=== PATIENT | female | born 1950 | race Caucasian/White ===

== ENCOUNTER 2018-04-21 09:06 | Emergency (ER) | payer MEDICARE ==
[~2018-04-21] VITALS: Ht 167.6 cm; Wt 73.9 kg
[~2018-04-21 09:06] MED LIST: ABAC300 PO; ACET325 PO; AMIO200 PO; AMOX500 PO; Aspir 8181 MG PO; ERGO50000 PO; HYDR1TAB94 PO; NAPR220 PO; NEBI5 PO; Nitrostat0.4 MG SL; Vitamin B Comple1 EA PO; XARELTO20 MG PO
== END 2018-04-21 12:24 | disposition home or self-care (01) ==
LOC: ER 09:06
DX: S90.02XA Contusion of left ankle, initial encounter (principal); Z88.2 Allergy status to sulfonamides; Z88.1 Allergy status to other antibiotic agents; Z79.899 Other long term (current) drug therapy; I48.91 Unspecified atrial fibrillation; E78.00 Pure hypercholesterolemia, unspecified; W22.8XXA Striking against or struck by other objects, initial encounter
CPT/HCPCS: 73610; 73630; 93005; 93010; 93971; 99284

== ENCOUNTER → 2021-02-04 | Outpatient (CLI) | payer MEDICARE, OTHER | END | disposition home or self-care (01) | LOC: LAB SHORT 12:42 | DX: D48.5 Neoplasm of uncertain behavior of skin (principal); L82.1 Other seborrheic keratosis | CPT/HCPCS: 88305 ==

== ENCOUNTER 2021-07-06 08:30 | Inpatient (IN) | payer MEDICARE, OTHER ==
[~2021-07-06] VITALS: Ht 167.6 cm; Wt 74.8 kg
[2021-07-06 09:01] LABS: BASOPHILS ABSOLUTE AUTO 0.06 K/mm3 (0.00-0.23); BASOPHILS PERCENT AUTO 1 % (0-2); EOSINOPHILS ABSOLUTE AUTO 0.19 K/mm3 (0.00-0.68); EOSINOPHILS PERCENT AUTO 2 % (0-6); Hematocrit 41.7 % (33.0-51.0); Hemoglobin 13.7 g/dL (11.5-16.0); IMMATURE GRAN ABSOLUTE AUTO 0.03 K/mm3 (0.00-0.10); IMMATURE GRAN PERCENT AUTO 0 % (0-1); LYMPHOCYTES ABSOLUTE AUTO 4.25 K/mm3 (0.84-5.20); LYMPHOCYTES PERCENT AUTO 45 % (21-46); MONOCYTES ABSOLUTE AUTO 1.05 K/mm3 (0.16-1.47); MONOCYTES PERCENT AUTO 11 % (4-13); Mean Corpuscular HGB 30.2 pg (26.0-34.0); Mean Corpuscular HGB Conc 32.9 g/dL (31.5-36.5); Mean Corpuscular Volume 92 fL (80-100); Mean Platelet Volume 11.2 fL (9.1-12.4); NEUTROPHILS ABSOLUTE AUTO 3.82 K/mm3 (1.96-9.15); NEUTROPHILS PERCENT AUTO 41 % (41-73); Platelet Count 212 K/mm3 (150-400); RDW Coefficient Variation 13.2 % (11.7-14.2); RDW Standard Deviation 44.6 fL (35.1-46.3); Red Blood Cell Count 4.54 M/mm3 (3.80-5.20)
[2021-07-06 09:16] LABS: International Normalized Ratio 1.15; Prothrombin Time Results 12.3 Sec (9.7-11.5)
[2021-07-06 09:23] LABS: Alanine Aminotransfer (ALT/SGP 38 U/L (12-78); Albumin, Blood 3.7 g/dL (3.4-5.0); Albumin/Globulin Ratio 0.9 (0.8-1.8); Alk Phos 78 U/L (50-136); Anion Gap 7 mmol/L (6-16); Aspartate Aminotrans (AST/SGOT 28 U/L (12-37); Bilirubin, Total 0.9 mg/dL (0.1-1.0); Blood Urea Nitrogen 20 mg/dL (8-24); Bun/Creatinine Ratio 26.6 (12.0-20.0); CO2, Blood 27 mmol/L (21-32); Calcium, Blood 9.2 mg/dL (8.5-10.1); Chloride, Blood 107 mmol/L (98-108); Creatinine, Blood 0.75 mg/dL (0.40-1.00); Globulin, Blood 3.9 g/dL (2.2-4.0); Glomerular Filtration Rate >60 (60-); Glucose, Blood 112 mg/dL (70-99); Potassium, Blood 3.2 mmol/L (3.5-5.5); Sodium, Blood 141 mmol/L (136-145); Total Protein, Blood 7.6 g/dL (6.4-8.2); Troponin I <0.015 ng/mL (0.000-0.040)
[2021-07-06 09:30] LABS: Calcium, Ionized (POC) 1.19 mmol/L (1.10-1.46); Chloride (POC) 103 mmol/L (98-108); Creatinine (POC) 0.8 mg/dL (0.6-1.0); Glucose (ISTAT POC) 115 mg/dL (70-99); Hemoglobin (POC) 14.3 g/dL (12.0-16.0); Potassium (POC) 4.2 mmol/L (3.5-5.5); Sodium (POC) 140 mmol/L (135-148); Total CO2 (POC) 28 mmol/L (21-32)
[2021-07-06 10:06] LABS: PCO2 Arterial 32.5 mmHg (35-45); PO2 Arterial 250 mmHg (80-100); pH Blood Arterial 7.37 (7.35-7.45)
[2021-07-06 10:16] LABS: SARS-Cov-2 (COVID-19) PCR, MMC NEGATIVE (NEGATIVE)
[2021-07-06 12:53] LABS: Hematocrit 38.7 % (33.0-51.0); Hemoglobin 12.4 g/dL (11.5-16.0)
[2021-07-06 13:09] LABS: International Normalized Ratio 1.23; Prothrombin Time Results 13.1 Sec (9.7-11.5)
[2021-07-06 13:27] LABS: Alanine Aminotransfer (ALT/SGP 529 U/L (12-78); Alk Phos 72 U/L (50-136); Anion Gap 9 mmol/L (6-16); Aspartate Aminotrans (AST/SGOT 810 U/L (12-37); Blood Urea Nitrogen 22 mg/dL (8-24); Bun/Creatinine Ratio 32.6 (12.0-20.0); CO2, Blood 21 mmol/L (21-32); Calcium, Blood 7.3 mg/dL (8.5-10.1); Chloride, Blood 110 mmol/L (98-108); Creatinine, Blood 0.68 mg/dL (0.40-1.00); Glomerular Filtration Rate >60 (60-); Glucose, Blood 233 mg/dL (70-99); Potassium, Blood 3.3 mmol/L (3.5-5.5); Sodium, Blood 140 mmol/L (136-145)
--- NOTE | 2021-07-06 13:35 | NUR ---
PT RECEIVED FROM GLOVE CUFFER. INTUBATED, DOPAMINE AT 10 MCG. MULTIPLE PUNCTURE SITES NOTED TO RIGHT WRIST, RIGHT BRACHIAL AND RIGHT GROIN. ARTERIAL AND VENOUS ACCESS TO RIGHT GROIN. BLOOD UNDER DRESSING, DRESSING CHANGED. PT VOMITTED BRIGHT RED FLUID WITH WHITE CHUNKS. TURNED TO SIDE, SUCTIONED AND OG TUBE INSTERTED AND STOMACH CONTENTS SUCTIONED. PT SHOWS SIGNS OF CHEST COMPRESSIONS TO STERNAL AREA. PER REPORT PT RECEIVED TWO STENTS TO THE MID LAD. PT PLACED IN RESTRAINTS TO PREVENT TUBE REMOVAL. RIGHT GROIN SOFT, NO HEMATOMA NOTED.
[2021-07-06 13:57] LABS: BASOPHILS ABSOLUTE AUTO 0.06 K/mm3 (0.00-0.23); BASOPHILS PERCENT AUTO 0 % (0-2); EOSINOPHILS ABSOLUTE AUTO 0.02 K/mm3 (0.00-0.68); EOSINOPHILS PERCENT AUTO 0 % (0-6); Hematocrit 39.4 % (33.0-51.0); IMMATURE GRAN ABSOLUTE AUTO 0.52 K/mm3 (0.00-0.10); IMMATURE GRAN PERCENT AUTO 3 % (0-1); LYMPHOCYTES ABSOLUTE AUTO 0.94 K/mm3 (0.84-5.20); LYMPHOCYTES PERCENT AUTO 5 % (21-46); MONOCYTES ABSOLUTE AUTO 1.03 K/mm3 (0.16-1.47); MONOCYTES PERCENT AUTO 5 % (4-13); Mean Corpuscular HGB 30.2 pg (26.0-34.0); Mean Corpuscular Volume 92 fL (80-100); Mean Platelet Volume 11.2 fL (9.1-12.4); NEUTROPHILS ABSOLUTE AUTO 17.35 K/mm3 (1.96-9.15); NEUTROPHILS PERCENT AUTO 87 % (41-73); Platelet Count 224 K/mm3 (150-400); RDW Coefficient Variation 13.2 % (11.7-14.2); RDW Standard Deviation 44.2 fL (35.1-46.3); White Blood Cell Count 19.92 K/mm3 (4.00-11.30)
[2021-07-06 14:13] LABS: PCO2 Arterial 34.2 mmHg (35-45); PO2 Arterial 215 mmHg (80-100)
[2021-07-06 14:31] LABS: Alanine Aminotransfer (ALT/SGP 583 U/L (12-78); Albumin, Blood 3.3 g/dL (3.4-5.0); Albumin/Globulin Ratio 1.2 (0.8-1.8); Alk Phos 72 U/L (50-136); Aspartate Aminotrans (AST/SGOT 942 U/L (12-37); Bilirubin, Direct 0.3 mg/dL (0.0-0.3); Bilirubin, Indirect 0.8 mg/dL (0.1-0.7); Bilirubin, Total 1.1 mg/dL (0.1-1.0); Cholesterol 193 mg/dL (50-200); Globulin, Blood 2.8 g/dL (2.2-4.0); HDL Cholesterol 64 mg/dL (>39); LDL/HDL RATIO 1.4; Low Density Lipoprotein Chol 88 mg/dL (0-110); Total Protein, Blood 6.1 g/dL (6.4-8.2); Triglycerides 205 mg/dL (30-160); Very Low Density Lipoprot Chol 41 mg/dL (6-32)
[2021-07-06 16:04] LABS: Source, Urine Catheter
[2021-07-06 16:07] LABS: Appearance, Urine Hazy (Clear); Bilirubin, Urine Neg (Neg); Blood, Urine 5+ (Neg); Color, Urine Yellow (P-Yellow); Glucose Qualitative, Urine 2+ (Neg); Ketones, Urine Neg (Neg); Leukocyte Esterase, Urine Neg (Neg); Nitrite, Urine Neg (Neg); Protein, Urine 3+ (Neg); Urobilinogen, Urine NORM (Normal)
[2021-07-06 16:17] LABS: Red Blood Cells, Urine 25-50 /hpf (0-2)
[2021-07-06 16:18] LABS: Bacteria Mod /hpf; Renal Epithelial Rare /hpf (0-Rare); Squamous Epithelial Cells Rare /hpf (Few); Transitional Epithelial Cells Rare /hpf (0-Rare)
[2021-07-06 16:52] LABS: BASOPHILS ABSOLUTE AUTO 0.03 K/mm3 (0.00-0.23); BASOPHILS PERCENT AUTO 0 % (0-2); EOSINOPHILS ABSOLUTE AUTO 0.01 K/mm3 (0.00-0.68); EOSINOPHILS PERCENT AUTO 0 % (0-6); Hemoglobin 11.2 g/dL (11.5-16.0); IMMATURE GRAN ABSOLUTE AUTO 0.22 K/mm3 (0.00-0.10); IMMATURE GRAN PERCENT AUTO 1 % (0-1); LYMPHOCYTES ABSOLUTE AUTO 0.91 K/mm3 (0.84-5.20); LYMPHOCYTES PERCENT AUTO 5 % (21-46); MONOCYTES PERCENT AUTO 8 % (4-13); Mean Corpuscular HGB 30.2 pg (26.0-34.0); Mean Corpuscular HGB Conc 32.9 g/dL (31.5-36.5); Mean Corpuscular Volume 92 fL (80-100); Mean Platelet Volume 11.1 fL (9.1-12.4); NEUTROPHILS ABSOLUTE AUTO 15.09 K/mm3 (1.96-9.15); NEUTROPHILS PERCENT AUTO 85 % (41-73); Platelet Count 199 K/mm3 (150-400); RDW Coefficient Variation 13.2 % (11.7-14.2); RDW Standard Deviation 44.7 fL (35.1-46.3); Red Blood Cell Count 3.71 M/mm3 (3.80-5.20); White Blood Cell Count 17.76 K/mm3 (4.00-11.30)
[2021-07-06 17:06] LABS: International Normalized Ratio 1.16; Prothrombin Time Results 12.4 Sec (9.7-11.5)
[2021-07-06 17:08] LABS: Anion Gap 10 mmol/L (6-16); CO2, Blood 18 mmol/L (21-32); Chloride, Blood 112 mmol/L (98-108); Potassium, Blood 3.4 mmol/L (3.5-5.5); Sodium, Blood 140 mmol/L (136-145)
[2021-07-06 17:27] LABS: Blood Urea Nitrogen 22 mg/dL (8-24); Calcium, Blood 7.4 mg/dL (8.5-10.1); Creatinine, Blood 0.85 mg/dL (0.40-1.00); Glomerular Filtration Rate >60 (60-); Glucose, Blood 184 mg/dL (70-99)
--- NOTE | 2021-07-06 17:40 | NUR ---
UPON MULTIPLE SUCTIONS OF BRIGHT RED BLOOD FROM ORAL CAVITY AND ORAL CARE, TONGUE APPEARS SWOLLEN AND AREAS OF BLUE/BLACK FROM APPARENT TRAUMA. MD AGREES THE PROBABLE CAUSE OF THE BLOODY EMESIS EARLIER POSSIBLY FROM TRAUMA FROM CODE/INTUBATION. PT OFF DOPAMINE, ON 10MCG OF LEVOPHED. HEPARIN STARTED PER PHARMACY ORDRS. RIGHT GROIN SITE STILL OOZING SMALL AMOUNT OF BRIGHT RED BLOOD.
[2021-07-06 17:41] LABS: CPK Creatine Kinase 2781 U/L (26-193)
[2021-07-06 17:48] LABS: Creatine Kinase MB 226.4 ng/mL (0.0-3.6); Creatine Kinase MB Index 8.1 (0.0-4.0)
--- NOTE | 2021-07-06 21:27 | NUR ---
BLEEDING SPOKE WITH DR DODD REGARDING BLEEDING TO NOSE, MOUTH, PICC LINE AND GROIN SITE. ORDER RECEIVED TO STOP HEPARIN GTT.
[2021-07-07 00:37] LABS: Hemoglobin 9.9 g/dL (11.5-16.0)
--- NOTE | 2021-07-07 02:00 | NUR ---
PICC DRESSING CHANGED R GROIN SHEET/CVL/ART LINE DRESSING CHANGED PATIENT BATHED, LINEN CHANGED, TURNED, ORAL CARE SUCTIONING
[2021-07-07 05:43] LABS: Hematocrit 23.9 % (33.0-51.0); Hemoglobin 7.9 g/dL (11.5-16.0); Mean Corpuscular HGB Conc 33.1 g/dL (31.5-36.5); Mean Corpuscular Volume 94 fL (80-100); Mean Platelet Volume 11.5 fL (9.1-12.4); Platelet Count 163 K/mm3 (150-400); RDW Coefficient Variation 13.5 % (11.7-14.2); RDW Standard Deviation 46.3 fL (35.1-46.3); Red Blood Cell Count 2.55 M/mm3 (3.80-5.20); White Blood Cell Count 16.26 K/mm3 (4.00-11.30)
[2021-07-07 06:02] LABS: BAND PERCENT MAN 10 % (0-8); BASOPHILS PERCENT MAN 0 % (0-2); EOSINOPHILS PERCENT MAN 0 % (0-6); LYMPHOCYTES ABSOLUTE MAN 0.81 K/mm3 (0.84-5.20); LYMPHOCYTES PERCENT MAN 5 % (21-46); MONOCYTES ABSOLUTE MAN 0.97 K/mm3 (0.16-1.47); MONOCYTES PERCENT MAN 6 % (4-13); NEUTROPHILS ABSOLUTE MAN 14.47 K/mm3 (1.96-9.15); SEG NEUTROPHILS PERCENT MAN 79 % (41-73); TOTAL CELLS COUNTED 100
[2021-07-07 06:18] LABS: Albumin, Blood 2.2 g/dL (3.4-5.0); Albumin/Globulin Ratio 0.9 (0.8-1.8); Bilirubin, Total 1.2 mg/dL (0.1-1.0); Bun/Creatinine Ratio 21.1 (12.0-20.0); Calcium, Blood 6.6 mg/dL (8.5-10.1); Creatinine, Blood 0.99 mg/dL (0.40-1.00); Globulin, Blood 2.5 g/dL (2.2-4.0); Potassium, Blood 4.6 mmol/L (3.5-5.5); Total Protein, Blood 4.7 g/dL (6.4-8.2)
--- NOTE | 2021-07-07 06:36 | NUR ---
Dr. Gregory notified of all of the following shift summary: -per Dr. Benjamin: d/c heparin gtt for excessive bleeding (mouth, nose, groin, picc, piv). started on dopamine gtt. -levo gtt maxed at 30. -dopamine gtt at 11 and increased quicker than ordered 15min intervals to maintain MAP > 65 - EKG this morning reading sinus tach at [address] Gregory states possible plan for balloon.
--- NOTE | 2021-07-07 06:51 | NUR ---
Dr. Gregory aware of dopamine increases more than 1 q 15 min.
--- NOTE | 2021-07-07 07:00 | NUR ---
ARRIVING TO UNIT AFTER REPORT PT HYPOTENSIVE, DESATTING. INCVREASED O2 TO 100%. INCREASE PRESSORS TO MAP OF 65. RIGHT HAND COLD. NO PULSE PALPABLE. FINGERBEDS BLUE WITH NO REACTION TO PRESSURE. INFORMED CARDIOLIST PUNCTURE WOUNDS TO RIGHT WRIST FROM WOOD GRINDER OPERATOR DAY BEFORE. BRIGHT RED BLOOD FROM MOUTH AND RIGHT GROIN. UNABLE TO HEAR HEART SOUNDS. UNABLE TO PALPATE PULSES.
--- NOTE | 2021-07-07 07:23 | NUR ---
ATTEMPT FOR BALLOON PUMP CONSENT AT 0722 ATTEMPTED TO CONTACT GERBER RUBIO, SPOUSE OF PT FOR CONSENT FOR BALLOON PUMP PLACEMENT. SPOUSE DID NOT ANSWER PHONE, UNABLE TO LEAVE VOICEMAIL.
[2021-07-07 08:21] LABS: PCO2 Arterial 29.5 mmHg (35-45); PO2 Arterial 137 mmHg (80-100)
[2021-07-07 08:23] LABS: pH Blood Arterial 7.19 (7.35-7.45)
--- NOTE | 2021-07-07 08:35 | NUR ---
PT RECEIVED FROM ARTIFICIAL STONE APPLICATOR. PT HAS BALLOON PUMP 1:1 augmented pressure 150 set at 110. MEAN 99. PT PUPILS BILA 10. NO REACTION. TONGUE PALE. PULSES FAINTLY DOPPLERED. PT COOL TO TOUCH. BLOOD FROM ORAL CAVITY. AWARE. CARDIOLOGY STATES TO KEEP MEAN ABOUE 75
[2021-07-07 08:42] LABS: Hematocrit 20.5 % (33.0-51.0); Hemoglobin 6.5 g/dL (11.5-16.0)
[2021-07-07 10:09] LABS: D-Dimer, Quantitative 4.82 mg/L FEU (0.00-0.52); International Normalized Ratio 1.48; Prothrombin Time Results 15.6 Sec (9.7-11.5)
--- NOTE | 2021-07-07 10:24 | NUR ---
LESLEE AND JOSEP ASKD ABOUT HEPARIN GTT BEING RESTARTED DUE TO BALLOON PUMP. JOSEP STATES TO GIVE BRILINTA BUT NO ORDER FOR HEPARIN GTT GIVEN. BRILINTAL GIVEN VIA NG
--- NOTE | 2021-07-07 10:35 | NUR ---
Initial palliative care consult: Trina is a 70 year old with a history of a-fib, DM and HTN. She was admitted on 07/06/21 with chest pain. She had a STEMI, a v-fib arrest in the ED, went to the slab installer on 07/06/21 received 2 stents and had a balloon pump placed this morning in the slab installer. Called to her bedside by nursing as Oneil, her , has come in to see her per the request of the nursing staff. Trina is on the vent, balloon pump in place. Oneil is tearful, overwhelmed and appears to grasp that Trina's condition at this time is very poor. Oneil states they have been for 52 years and that the adopted a son, Kamar, who is 13. Oneil reports Kamar is their great great nephew whom they officially adopted and have raised since he was 4 months old. Allowed Oneil to reminisce about their life together, their love for each other and their son. Emotional support given to Oneil. Nursing and physician have attempted to answer his questions to the best of their knowledge at this time. Oneil states that Trina has strong brandon and that he knows that she will be in a better place when she dies. Oneil stated, "She wouldn't want to live like this (attached to machines.)" Oneil stated that if her heart stopped that he would not want her to have CPR. "She's in God's hands." Toolmaker Helper Tim visited during the time this designer writer was present. Will allow Oneil some time to spend with Trina alone and will check in with him a little later. Nursing requested to contact PC RN dalia.
[2021-07-07 10:40] LABS: CHOL/HDL RATIO 1.7; Cholesterol 80 mg/dL (50-200); Creatine Kinase MB 117.9 ng/mL (0.0-3.6); HDL Cholesterol 46 mg/dL (>39); LDL/HDL RATIO 0.3; Low Density Lipoprotein Chol 12 mg/dL (0-110); Triglycerides 109 mg/dL (30-160); Very Low Density Lipoprot Chol 21 mg/dL (6-32)
--- NOTE | 2021-07-07 11:12 | NUR ---
Upon receiving a referral for spiritual care from truck engine assembler Carri, I visit patient. Patient's spouse is bedside. Oneil is greiving appropriately in the face of the possible loss of his of 52yrs. I conduct a life review, normalize his experience and provide therapeutic listening, emotional support and prayer. Oneil responds well and shows signs of being encouraged. I will continue to remain available to patient and family.
--- NOTE | 2021-07-07 11:17 | NUR ---
PUPILS 8 BILAT. PT DID MOVE ALL EXTREMETIES WITH SEDATION BREAK DID NOT OPEN EYES OR FOLLOW COMMANDS. RESTARTED TO PROTECT PUMP LINES.
[2021-07-07 11:26] LABS: CPK Creatine Kinase 2106 U/L (26-193); Creatine Kinase MB Index 5.6 (0.0-4.0)
[2021-07-07 11:28] LABS: Troponin I >200.000 ng/mL (0.000-0.040)
--- NOTE | 2021-07-07 11:49 | NUR ---
PT RIGHT THIGH NOTABLY LARGER THAN LEFT. LFT PULSE PALPABLE. NO LONGER ABLE TO DOPPLER PULSE TO RIGHT FOOT
--- NOTE | 2021-07-07 11:56 | NUR ---
DR CAMILO IN ROOM. NOTIFIED OF INCREASED SIZE AND FIRMNESS AND LOSS OF DOPPLERED PULSE TO RIGHT FOOT. DR CAR IN ROOM WELL.
--- NOTE | 2021-07-07 12:14 | NUR ---
PT REPOSITIONED. RIGHT THIGH AND LEFT THIGH MORE SIMILIAR IN SIZE. RIGHT 60 CM, LEFT 58. ABLE TO DOPPLER RIGHT PULSES AND REPOSITIONING. WARM BLANKETS APPLIED AGAIN FOR WARMH
--- NOTE | 2021-07-07 12:22 | NUR ---
DR CAR AND DR LEE REMINDED OF LACK OF HEPARIN THERAPY ON IABP
--- NOTE | 2021-07-07 12:36 | NUR ---
PER DR. CAR 50MG ROCURONIUM GIVEN FOR ENT TO BETTER EVAL
[2021-07-07 12:58] LABS: Creatine Kinase MB 121.7 ng/mL (0.0-3.6); Creatine Kinase MB Index 5.2 (0.0-4.0)
--- NOTE | 2021-07-07 13:10 | NUR ---
ATTEMPTED TO CALL REPORT TO ICU 129 RN. NURSE TO CALL BACK
--- NOTE | 2021-07-07 13:21 | NUR ---
REPORT TO MELVIN ALLISON IN [facility]
[2021-07-07 13:32] LABS: Hematocrit 37.3 % (33.0-51.0); Hemoglobin 12.4 g/dL (11.5-16.0)
[2021-07-07 14:15] LABS: Creatine Kinase MB 126.5 ng/mL (0.0-3.6)
[2021-07-07 14:31] LABS: Creatine Kinase MB Index 5.1 (0.0-4.0)
--- NOTE | 2021-07-07 17:34 | NUR ---
UPON CLEANING ROOM A PT BELONGING BAG WITH A NIGHT GOWN AND PANTIES FOUND. CALL TO MR MAYES RUBIO, HE STATED TO THROW AWAY. I INFORMED HIM THERE WAS NO ROLLINS TO INTERNATIONAL TAX MANAGER WE WOULD HOLD HE REPEATED TO THROW THE ITEMS AWAY
== END 2021-07-07 16:52 | disposition short-term general hospital (02) | DRG 270 ==
LOC: ER 08:30 → ICUW 08:49
PROVIDERS: Emergency Medicine; Family Medicine; Internal Medicine Critical Care Medicine; ADMIT Internal Medicine Cardiovascular Disease
PROC: 027035Z Dilation of Coronary Artery, One Artery with Two Drug-eluting Intraluminal Devices, Percutaneous Approach (ICD-10-PCS; 2021-07-06)
PROC: 0BH17EZ Insertion of Endotracheal Airway into Trachea, Via Natural or Artificial Opening (ICD-10-PCS; 2021-07-06)
PROC: 4A023N7 Measurement of Cardiac Sampling and Pressure, Left Heart, Percutaneous Approach (ICD-10-PCS; 2021-07-06)
PROC: B2111ZZ Fluoroscopy of Multiple Coronary Arteries using Low Osmolar Contrast (ICD-10-PCS; 2021-07-06)
PROC: 5A1945Z Respiratory Ventilation, 24-96 Consecutive Hours (ICD-10-PCS; 2021-07-06)
PROC: 5A02210 Assistance with Cardiac Output using Balloon Pump, Continuous (ICD-10-PCS; principal; 2021-07-07)
PROC: 30243N1 Transfusion of Nonautologous Red Blood Cells into Central Vein, Percutaneous Approach (ICD-10-PCS; 2021-07-07)
DX: I21.3 ST elevation (STEMI) myocardial infarction of unspecified site (principal); J96.01 Acute respiratory failure with hypoxia; R57.0 Cardiogenic shock; R57.8 Other shock; I48.20 Chronic atrial fibrillation, unspecified; K92.0 Hematemesis; Z20.822 Contact with and (suspected) exposure to COVID-19; I10 Essential (primary) hypertension; E78.5 Hyperlipidemia, unspecified; K21.9 Gastro-esophageal reflux disease without esophagitis; I25.10 Atherosclerotic heart disease of native coronary artery without angina pectoris; Z88.2 Allergy status to sulfonamides; Z88.1 Allergy status to other antibiotic agents; Z79.899 Other long term (current) drug therapy; Z79.01 Long term (current) use of anticoagulants
CPT/HCPCS: 31500; 33967; 36415; 36556; 36569; 36600; 51702; 71045; 76937; 80047; 80048; 80053; 80061; 80076; 81001; 82550; 82553; 82803; 83735; 83880; 84484; 85014; 85018; 85025; 85347; 85379; 85610; 85730; 86140; 86850; 86900; 86901; 86923; 92950; 93005; 93010; 93308; 93321; 93458; 94002; 94003; 96374-59; 96375-59; 99152; 99153; 99285-25; A9270; C1725; C1751; C1769; C1874; C1887; C1894; C9113; C9600; C9606; J0171; J0282; J0295; J0330; J0690; J1265; J1644; J2250; J2405; J2704; J2765; J3010; J3480; J7030; J7040; J7050; J7060; P9016; Q9967; U0004